=== PATIENT | female | born 1955 | race Caucasian/White ===

== ENCOUNTER 2023-08-05 00:56 | Day surgery (SDC) | payer MEDICARE, SELFPAY ==
[2023-07-22 14:01] VITALS: BMI 21.3
--- NOTE | 2023-08-04 17:00 | PM.HPGS ---
History of Present Illness History of Present Illness Consent: Risks, benefits, and alternatives have been discussed and questions answered. Patient agrees to proceed with procedure. Chief complaint: neoplasm screening Narrative: Mirian Knowles is a 68 year old female Referred for colon cancer screening. Review of Systems Review of Systems: All systems reviewed & are unremarkable except as noted in HPI and below PMFSH Social History Social History Smoking status: Never smoker Alcohol intake: current Drinks per week: 1 Substance use type: does not use Living arrangements: with family Spiritual care concerns: No Meds Home Medications and Allergies Home Medications Medication Instructions Recorded Confirmed Type albuterol sulfate 90 mcg/actuation 1 puff inhalation PRN PRN SOB 07/22/23 08/05/23 History aerosol inhaler levothyroxine 50 mcg tablet 50 mcg PO DAILY 07/22/23 08/05/23 History Allergies Allergy/AdvReac Type Severity Reaction Status Date / Time ibuprofen Allergy Rash Verified 08/05/23 08:34 Penicillins Allergy Rash Verified 08/05/23 08:34 Exam Const: General: alert Orientation/consciousness: patient oriented x3 Resp: Auscultation: clear to auscultation bilaterally Cardio: Rhythm: regular rhythm GI: GI Palp: Yes Soft to palpation and No Tenderness to palpation present (GI) Neuro: General: patient oriented x3 Assessment and Plan Assessment and plan (1) Colon cancer screening: Code(s): Z12.11 - Encounter for screening for malignant neoplasm of colon Status: Acute Assessment and Plan: Colonoscopy with possible biopsy or polypectomy or cautery or injection of substances.
[2023-08-05 08:24] VITALS: BP 143/65; PULSE 83; RESP 18; TEMP 36.6; O2SAT 100; BMI 21.4
[2023-08-05] MEDS: LACTATED RINGERS 1,000 ML 150 ML IV CONT (08:43)
--- NOTE | 2023-08-05 09:22 | WPDANESEPPF ---
Anes - Initial Pre Proc Eval Procedure: Operation Date: 08/05/23 09:45 Proposed Procedures p Screening Colonoscopy - Jovanny Dougherty MD Date/Time: 08/05/23 09:22 Surgeon: Jovanny Dougherty MD Pre Op Diagnosis: neoplasm screening Patient Data Age: 68 Gender: F Height: 1.57 m Weight: 53.2 kg Last Vital Signs Temp 97.8 F 08/05/23 08:24 Pulse 83 08/05/23 08:24 Resp 18 08/05/23 08:24 BP 143/65 H 08/05/23 08:24 Pulse Ox 100 08/05/23 08:24 O2 Del Method Room Air 08/05/23 08:24 Allergies Allergy/AdvReac Type Severity Reaction Status Date / Time ibuprofen Allergy Rash Verified 08/05/23 08:34 Penicillins Allergy Rash Verified 08/05/23 08:34 Home Medications Medication Instructions Recorded Confirmed Type albuterol sulfate 90 mcg/actuation 1 puff inhalation PRN PRN SOB 07/22/23 08/05/23 History aerosol inhaler levothyroxine 50 mcg tablet 50 mcg PO DAILY 07/22/23 08/05/23 History Patient hx anesthesia problems: none Family hx anesthesia problems: none Results Review: All pre-operative results and documents have been reviewed as part of the pre-operative evaluation. [facility] Social History Social History Smoking status: Never smoker Alcohol intake: current Drinks per week: 1 Substance use type: does not use Living arrangements: with family Spiritual care concerns: No Anes - Eval Final PreProcedure Day of Procedure 08/05/23 09:22 Patient weight: normal Heart: regular rate and rhythm Lungs: clear to auscultation Airway: Mallampati scale class II Neurological: alert and oriented Last oral intake: >/= 8 hours ASA classification: II Emergent: no Anesthetic plan: proceed Anesthesia type and monitoring: general GIVS and standard monitoring Results Review: All pre-operative results and documents have been reviewed as part of the pre-operative evaluation. Informed Consent: The patient's anesthetic plan and its attendant risks and benefits were discussed with the patient/family/POA. Questions were solicited and answers provided to the satisfaction of the patient/family/POA.
[2023-08-05 10:03] VITALS: BP 92/54; PULSE 76; RESP 27; O2SAT 100
[2023-08-05 10:13] VITALS: BP 92/54; PULSE 77; RESP 23; O2SAT 100
[2023-08-05 10:23] VITALS: BP 94/61; PULSE 70; RESP 16; O2SAT 100
== END 2023-08-05 10:35 | disposition home or self-care (01) ==
PROVIDERS: Visit Provider Internal Medicine Gastroenterology
PROC: 0DJD8ZZ Inspection of Lower Intestinal Tract, Via Natural or Artificial Opening Endoscopic (ICD-10-PCS; CPT 45378; principal; 2023-08-05 09:45)
DX: Z12.11 Encounter for screening for malignant neoplasm of colon (principal); K57.30 Diverticulosis of large intestine without perforation or abscess without bleeding; Z79.51 Long term (current) use of inhaled steroids
CPT/HCPCS: G0121; J2704; J7120